=== PATIENT | female | born 1960 | race Hispanic/Latino ===

== ENCOUNTER 2017-11-12 22:26 | Emergency (ER) | payer BC ==
[~2017-11-12] VITALS: Ht 170.2 cm; Wt 123.4 kg
[2017-11-12] MEDS ORDERED: TRIMETHOPRIM/SULFAMETHOXAZOLE 160-800 MG TAB PO ONE (23:00)
[2017-11-12 23:48] VITALS: BP 138/74
== END 2017-11-12 23:25 | disposition home or self-care (01) ==
LOC: FSED 22:26
DX: L03.313 Cellulitis of chest wall (principal)
CPT/HCPCS: 99283

== ENCOUNTER 2018-01-10 01:37 | Emergency (ER) | payer BC ==
[~2018-01-10] VITALS: Ht 170.2 cm; Wt 123.4 kg
[2018-01-10] MEDS ORDERED: KETOROLAC TROMETHAMINE 60 MG/2 ML VIAL IM ONE (02:15)
[2018-01-10] MEDS ORDERED: DIAZEPAM INJ 5 MG/ML 2 ML IM ONE (02:15)
[2018-01-10] MEDS ORDERED: GABAPENTIN300 MG PO (02:16)
[2018-01-10] MEDS ORDERED: LORAZEPAM INJ 2 MG/ML VIAL IM ONE (02:30)
== END 2018-01-10 02:39 | disposition home or self-care (01) ==
LOC: FSED 01:37
DX: M54.41 Lumbago with sciatica, right side (principal); S39.012A Strain of muscle, fascia and tendon of lower back, initial encounter; M54.16 Radiculopathy, lumbar region; I10 Essential (primary) hypertension; E11.9 Type 2 diabetes mellitus without complications; E78.5 Hyperlipidemia, unspecified
CPT/HCPCS: 99283; J1885; J3360

== ENCOUNTER 2019-02-10 07:26 | Emergency (ER) | payer BC ==
[~2019-02-10] VITALS: Ht 170.2 cm; Wt 128.1 kg
[~2019-02-10 07:26] MED LIST: GABAPENTIN300 MG PO
[2019-02-10 08:50] VITALS: BP 172/77
== END 2019-02-10 09:06 | disposition home or self-care (01) ==
LOC: FSED 07:26
DX: K02.9 Dental caries, unspecified (principal); K08.89 Other specified disorders of teeth and supporting structures
CPT/HCPCS: 80048; 85025; 99283

== ENCOUNTER 2020-10-25 23:26 | Emergency (ER) | payer BC ==
[~2020-10-25] VITALS: Ht 170.2 cm; Wt 130.2 kg
[2020-10-25] MEDS ORDERED: KETOROLAC TROMETHAMINE 60 MG/2 ML VIAL IM STA (23:40)
[2020-10-25] MEDS ORDERED: KETOROLAC TROMETHAMINE 30 MG/ML VIAL ONE (23:56)
[2020-10-25] MEDS ORDERED: VOLTAREN ARTHRI20 GM (23:58)
[2020-10-25] MEDS ORDERED: LISINOPRIL10 MG PO (23:58)
[2020-10-25] MEDS ORDERED: ATORVASTATIN CA10 MG PO (23:58)
[2020-10-25] MEDS ORDERED: HUMALOG MI100 UNIT/2 SQ (23:58)
[2020-10-26] MEDS ORDERED: HYDROCODONE/APAP 5MG-325MG TAB PO STA (00:19)
[2020-10-26] MEDS ORDERED: TYLENOL # 31 EA PO (00:22)
[2020-10-26] MEDS ORDERED: ONDANSETRON ODT4 MG PO (00:22)
[2020-10-26 00:40] VITALS: BP 166/74
== END 2020-10-26 00:40 | disposition home or self-care (01) ==
LOC: FSED 23:34
DX: M25.562 Pain in left knee (principal); I10 Essential (primary) hypertension; E11.9 Type 2 diabetes mellitus without complications; E78.5 Hyperlipidemia, unspecified
CPT/HCPCS: 73562; 96372; 99283; J1885

== ENCOUNTER 2022-09-28 20:21 | Emergency (ER) | payer BC ==
[~2022-09-28] VITALS: Ht 170.2 cm; Wt 122.9 kg
[~2022-09-28 20:21] MED LIST changes: +ATORVASTATIN CA10 MG PO; +HUMALOG MI100 UNIT/2 SQ; +LISINOPRIL10 MG PO; +ONDANSETRON ODT4 MG PO; +TYLENOL # 31 EA PO; +VOLTAREN ARTHRI20 GM
[2022-09-28] MEDS ORDERED: KETOROLAC TROMETHAMINE 60 MG/2 ML VIAL IM STA (20:45)
[2022-09-28] MEDS ORDERED: DEXAMETHASONE SOD PHOS 10 MG/1 ML VIAL IM STA (20:45)
[2022-09-28] MEDS ORDERED: KETOROLAC TROMETHAMINE 60 MG/2 ML VIAL ONE (21:17)
[2022-09-28] MEDS ORDERED: DEXAMETHASONE SOD PHOS INJ 4 MG/ML SDV ONE (21:17)
[2022-09-28] MEDS ORDERED: AZITHROMYCIN250 MG PO (21:32)
[2022-09-28] MEDS ORDERED: VENTOLIN HFA18 GM INH (21:32)
[2022-09-28 21:40] VITALS: BP 123/63; PULSE 100; RESP 18; TEMP 98.3; O2SAT 95
== END 2022-09-28 21:40 | disposition home or self-care (01) ==
LOC: FSED 20:28
DX: R05.9 Cough, unspecified (principal); U07.1 COVID-19; E11.65 Type 2 diabetes mellitus with hyperglycemia; I10 Essential (primary) hypertension; E78.5 Hyperlipidemia, unspecified
CPT/HCPCS: 36415; 82948; 83518; 87400; 99282; J1100; J1885; U0002

== ENCOUNTER 2024-04-10 20:56 | Emergency (ER) | payer BC ==
[~2024-04-10] VITALS: Ht 170.2 cm; Wt 120.7 kg
[~2024-04-10 20:56] MED LIST changes: +AMOX TR-K CLV1 EAC2 PO; +AZITHROMYCIN250 MG PO; +CEFDINIR300 MG PO; +DIPHENHYDRAMINE25 M2 PO; +IBUPROFEN200 MG PO; +NASACORT16.9 ML; +VENTOLIN HFA18 GM INH
[2024-04-10 21:04] VITALS: PULSE 91; RESP 21; TEMP 99.3
[2024-04-10] MEDS ORDERED: AUGMENTIN 500-1 EACH PO (21:09)
[2024-04-10] MEDS: ACETAMINOPHEN 325 MG TAB PO ONE (21:39)
[2024-04-10 21:40] VITALS: BP 170/81; PULSE 89; RESP 16; TEMP 98.9; O2SAT 98
== END 2024-04-10 21:43 | disposition home or self-care (01) ==
LOC: FSED 21:02
DX: R09.81 Nasal congestion (principal); J01.90 Acute sinusitis, unspecified; I10 Essential (primary) hypertension; E11.9 Type 2 diabetes mellitus without complications; E78.5 Hyperlipidemia, unspecified
CPT/HCPCS: 99283